=== PATIENT | female | born 1985 | race Caucasian/White ===

== ENCOUNTER 2023-04-26 14:20 | Emergency (ER) | payer OTHER, SELFPAY ==
[2023-04-26 14:21] VITALS: BP 98/60
--- NOTE | 2023-04-26 15:04 | ED.GENMED ---
History of Present Illness
General
Chief Complaint: Abdominal Pain
Source: patient, records and spouse
Exam Limitations: none
Time Seen by Provider: 04/26/23 14:37
Nursing documentation reviewed up to this point in time: agreed with
Travel History
Have you had any contact with someone who has COVID-19?: No
Do you have any symptoms of coronavirus? Fever > 100 degrees, chills, cough, shortness of breath, sore throat, loss of taste or smell, muscle aches, or headache?: No
History of Present Illness
History of Present Illness:
Patient is a 38-year-old female who presents to the emergency department complaining of nausea, vomiting and diarrhea since awaking this morning. Patient states she was having vomiting and diarrhea every 5 minutes for approximately 2 hours.
Patient is thirsty. Patient denies fever but admits to chills. Patient has diffuse abdominal pain and is getting her period also. Patient's worst pain is right upper quadrant. Patient had a cholecystectomy 2 years ago. Patient denies any
symptoms. Patient denies any upper respiratory type symptoms. Patient denies chest pain or shortness of breath. Patient denies any unusual foods. No one else is ill. There is no travel history. No recent antibiotics.
Past History
Past History
ED Past Medical History: Asthma and Other (Polycystic ovaries, heart murmur, migraines)
ED Past Surgical History: Gynecological and Tonsilectomy
Social History
Tobacco: Non-smoker
Alcohol: None
Drug: None
Living: with family
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
Review of Systems
Review of Systems
All Other Systems: ROS reviewed and negative except as documented in HPI and ROS
Constitutional: Reports fatigue and chills; Denies fever
EENT: Reports no symptoms
Respiratory: Reports no symptoms
Cardiac: Reports no symptoms
ABD/GI: Reports abdominal pain, nausea, vomiting, diarrhea and anorexia; Denies bloody stools or black stools
: Reports no symptoms
Musculoskeletal: Reports no symptoms
Skin: Reports no symptoms
Neurological: Reports no symptoms
Hematologic/Lymphatic: Reports no symptoms
Phy Exam
Physical Exam
Physical Exam:
Physical Exam
General: moderate distress, alert and appropriate, well nourished, dry mucous membranes
HENT: Normocephalic, supple with no lymphadenopathy, no thyromegaly
Eyes: Clear sclera, conjuctiva without injection
Heart: Regular rhythm and rate. No S3, S4. No murmur. No NVD
Lungs: No respiratory distress, no stridor, lung sounds clear and equal bilaterally
Abdomen: Soft, mild to moderate diffuse tenderness without guarding or rebound, no organomegaly, no CVA tenderness, BS good
Neuro: Alert and oriented x 3, CN II - XII intact, no motor focality, no cerebellar dysfunction
Skin: no rash
Psychiatric: well kept. interactive and cooperative
Extremities: No edema, cyanosis, tenderness, Good and equal peripheral pulses.
Course
Orders/Labs/Results
Orders:
Orders
04/26/23 14:43
0.9% Sodium Chloride 1000 ml [Nss] 1,000 ml IV BOLUS
HYDROmorphone [Dilaudid] 1 mg IV NOW STA
Ondansetron Injectable [Zofran] 4 mg IV NOW STA
04/26/23 14:44
Test Result ONCE
04/26/23 15:08
Complete Blood Count/With Diff Urgent
Comprehensive Metabolic Panel Urgent
HCG, Serum Qualitative Screen Urgent
Lipase Urgent
04/26/23 15:56
US Abdomen Complete/Upper Urgent
Comment:
Reason For Exam: tender ruq hx of cholecystectomy, elev LFT
Abnormal Lab Results
04/26/23
15:08
WBC 11.7 H 10^3/uL
(4.8-10.8)
MCH 32.5 H pg
(27.0-31.0)
Absolute Neuts (auto) 10.4 H 10^3/uL
(1.4-6.5)
Absolute Lymphs (auto) 0.4 L 10^3/uL
(1.2-3.4)
Neutrophils % 89.3 H %
(42.2-75.2)
Lymphocytes % 3.7 L %
(20.5-51.1)
Chloride 108 H mmol/L
(98-107)
Glucose 108 H mg/dl
(70-99)
AST 221 H U/L
(14-36)
ALT 108 H U/L
(0-35)
04/26/23 15:08
04/26/23 15:08
Vital Signs
Initial and Last Documented VS:
Initial Vital Signs
Pulse Resp BP Pulse Ox
89 18 98/60 99
04/26/23 14:21 04/26/23 14:21 04/26/23 14:21 04/26/23 14:21
Last Documented Vital Signs
Pulse Resp BP Pulse Ox
89 18 98/60 99
04/26/23 14:21 04/26/23 14:21 04/26/23 14:21 04/26/23 14:21
*Radiology
Radiology exam reviewed: radiology read reviewed (Nothing acute)
*Pulse Oximetry
Patient hypoxic: no
*EKG
Interpreted by ED Provider?: NA
*Smoking Pipes Cleaner Interpretation
Rate: Smoking Pipes Cleaner- N/A
*Critical Care Note
Total Time (30-74mins, 75-104mins- exclusive of procedures): Not Applicable
Update Note
Update Note:
Patient feeling better. Still mild abdominal pain. No diarrhea while here. Patient will be discharged with medications.
ED Attending Note
-
Portions of this chart may have been created with voice recognition software.� Occasional wrong word or��sound alike� substitutions may have occurred due to the inherent limitations of voice recognition software.
Discharge Plan
Departure
Patient Disposition: Home (Routine Discharge)
Date of Disposition: 04/26/23
Time of Disposition: 18:31
Patient with high blood pressure during this ER visit?: No
Condition: Fair
Covid-19: Not Applicable
Discharge Problem:
Acute gastroenteritis, Dehydration
Instructions: Dehydration, Adult (DC), [place] Diet, Viral Gastroenteritis, Adult (DC)
Prescriptions:
New
ondansetron 8 mg tablet,disintegrating
8 mg PO TID PRN (Reason: nausea and vomiting) Qty: 20 0RF
oxycodone 5 mg tablet
5 mg PO Q4H PRN (Reason: Pain) Qty: 14 0RF
No Action
cetirizine [Zyrtec] 10 MG tablet
10 mg PO QPM
escitalopram oxalate 10 MG tablet
10 mg PO QPM
cholecalciferol (vitamin D3) 2,000 UNIT tablet
2,000 unit PO QPM
ibuprofen 600 MG tablet
600 mg PO Q4HPRN PRN (Reason: cramps) 0RF
triamcinolone acetonide [Nasacort] 55 mcg Aerosol,[place]
1 spray INTRANASAL DAILY
Rx Instructions:
administer into each nostril
oxycodone 5 mg tablet
5 mg PO Q4HPRN PRN (Reason: breakthrough/severe pain) Qty: 10 0RF
Referrals:
Lakesha Zavala CRNP [Family Provider] - Follow up in 5-7 days
Interventions
Interventions:
*Risk Screen - Suicide Last Done: 04/26/23 14:21
*General Assessment Last Done: 04/26/23 14:21
*Neglect/Abuse Screening Last Done: 04/26/23 14:21
ED- Fall Risk Assessment Last Done: 04/26/23 15:15
*ED COVID-19 Vaccine History Last Done: 04/26/23 15:15
NN-[id number]-[id number] Assessment Last Done: 04/26/23 15:16
[2023-04-26] MEDS: NSS 1000 IV (15:07)
[2023-04-26] MEDS: ZOFRAN 4 MG IV (15:07)
[2023-04-26] MEDS: DILAUDID 1 MG IV (15:07)
[2023-04-26 15:15] VITALS: BMI 31.9
[2023-04-26 15:22] LABS: % Basophils 0.4 % (0-2); % Eosinophils 2.7 % (0-6); % Immature Granulocytes 0.3 % (0-0.5); % Lymphocytes 3.7 % (20.5-51.1); % Monocytes 3.6 % (1.7-9.3); % Neutrophils 89.3 % (42.2-75.2); Absolute Basophils 0.1 10^3/uL (0-0.2); Absolute Eosinophils 0.3 10^3/uL (0-0.7); Absolute Lymphocytes 0.4 10^3/uL (1.2-3.4); Absolute Monocytes 0.4 10^3/uL (0.1-0.6); Absolute Neutrophils 10.4 10^3/uL (1.4-6.5); Hematocrit 43.3 % (37.0-47.0); Hemoglobin 15.8 g/dL (12.0-16.0); Mean Corp Hgb Conc. 36.5 g/dL (33.0-37.0); Mean Corpuscular Hgb 32.5 pg (27.0-31.0); Mean Corpuscular Volume 89.1 fL (81.0-99.0); Mean Platelet Volume 8.4 fL (7.4-10.4); Nucleated Red Blood Cells % 0 %; Platelet Count 247 10^3/uL (130-400); Red Blood Cell Count 4.86 10^6/uL (4.20-5.40); White Blood Cell Count 11.7 10^3/uL (4.8-10.8)
[2023-04-26 15:36] LABS: HCG, Serum Qualitative Screen Negative
[2023-04-26 15:39] LABS: ALT (SGPT) 108 U/L (0-35); AST (SGOT) 221 U/L (14-36); Albumin 4.5 g/dl (3.5-5.0); Alkaline Phosphatase 77 U/L (38-126); Blood Urea Nitrogen 16 mg/dl (7-17); Calcium 8.8 mg/dl (8.4-10.2); Carbon Dioxide 23 mmol/L (22-30); Chloride 108 mmol/L (98-107); Estimated Creatinine Clearance > 125 ml/min; Glucose 108 mg/dl (70-99); Lipase 172 U/L (23-300); Potassium 3.9 mmol/L (3.5-5.1); Sodium 137 mmol/L (135-145); Total Protein 7.1 g/dl (6.3-8.2); eGFR > 60.00
[2023-04-26] MEDS: ZOFRAN ODT (ORALLY DISINTEGRATING) 4 MG PO (18:50)
[2023-04-26 18:53] LABS: Urine Albumin Negative (Neg - Trace); Urine Bilirubin Negative (Negative); Urine Character Clear (Clear); Urine Color Yellow; Urine Glucose Negative (Negative); Urine Ketone 2+ (Negative); Urine Leukocyte Negative (Negative); Urine Nitrite Negative (Negative); Urine Occult Blood 3+ (Negative); Urine Urobilinogen Negative (Neg - 1+)
[2023-04-26 19:14] LABS: Urine Squamous Cell 0-2 /LPF (Few)
[2023-04-26 19:15] LABS: Urine White Cell 0-2 /HPF (0-5)
== END 2023-04-26 18:52 | disposition home or self-care (01) ==
LOC: EMR 14:20
PROVIDERS: EMERGENCY PHYSICIAN Emergency Medicine; FAMILY PHYSICIAN Nurse Practitioner
DX: K52.9 Noninfective gastroenteritis and colitis, unspecified (principal); E86.0 Dehydration; J45.909 Unspecified asthma, uncomplicated; Z90.49 Acquired absence of other specified parts of digestive tract
CPT/HCPCS: 99284; 96374; 96375; 96361; 76700; 80053; 81003; 81015; 83690; 84703; 85025

== ENCOUNTER 2023-08-01 14:15 | Emergency (ER) | payer OTHER, SELFPAY ==
[2023-08-01 14:24] VITALS: BP 123/87
--- NOTE | 2023-08-01 17:55 | ED.GENMED ---
History of Present Illness
General
Chief Complaint: Skin Problem
Source: patient
Exam Limitations: none
Time Seen by Provider: 08/01/23 17:15
Nursing documentation reviewed up to this point in time: agreed with
Travel History
Have you had any contact with someone who has COVID-19?: No
Do you have any symptoms of coronavirus? Fever > 100 degrees, chills, cough, shortness of breath, sore throat, loss of taste or smell, muscle aches, or headache?: No
History of Present Illness
History of Present Illness:
38-year-old female presenting to the emergency department today with concerns of small lump to the back of her neck starting yesterday went to an urgent care sent to the ER denies additional symptoms otherwise.
Past History
Past History
ED Past Medical History: Asthma and Other (Polycystic ovaries, heart murmur, migraines)
ED Past Surgical History: Gynecological and Tonsilectomy
Social History
Tobacco: Non-smoker
Alcohol: None
Drug: None
Living: with family
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
Review of Systems
Review of Systems
Allergies reviewed?: Yes
All Other Systems: ROS reviewed and negative except as documented in HPI and ROS
Phy Exam
Physical Exam
Physical Exam:
GENERAL: Alert , in no apparent distress
EYE: pupils equal and reactive
NECK: Supple, no significant adenopathy.
ENT: Small minimally tender right-sided occipital lymph node roughly 1 cm size mobile o/p clr, mmm.
CARDIAC: Regular rate and rhythm .
LUNGS: Clear breath sounds bilaterally, no acute respiratory distress, no wheezes/rales/rhonchi
ABDOMEN: Soft, without focal tenderness, no r/g, no cvat
NEUROLOGICAL: Alert and oriented, no focal neuro deficits
SKIN: Warm and dry, skin intact.
MUSCULOSKELETAL: No edema, well perfused.
PSYCH: Normal and appropriate interaction.
Course
Orders/Labs/Results
Orders:
Orders
08/01/23 17:53
Cephalexin Monohydrate [Keflex] 500 mg PO NOW STA
Vital Signs
Initial and Last Documented VS:
Initial Vital Signs
Temp Pulse Resp BP Pulse Ox
98.4 F 72 18 123/87 98
08/01/23 14:24 08/01/23 14:24 08/01/23 14:24 08/01/23 14:24 08/01/23 14:24
Last Documented Vital Signs
Temp Pulse Resp BP Pulse Ox
98.4 F 72 18 123/87 98
08/01/23 14:24 08/01/23 14:24 08/01/23 14:24 08/01/23 14:24 08/01/23 14:24
MDM/Problems Addressed
MDM/Problems Addressed:
38-year-old female presenting to the emergency department today with concerns of a swollen occipital lymph node starting yesterday. No surrounding redness or warmth minimal tenderness to palpation no additional findings. No concerning features
otherwise. Was started on medication for potential lymphadenitis and was advised for close outpatient follow-up for monitoring of this. Return precautions given.
*Critical Care Note
Total Time (30-74mins, 75-104mins- exclusive of procedures): Not Applicable
ED Attending Note
-
Portions of this chart may have been created with voice recognition software.� Occasional wrong word or��sound alike� substitutions may have occurred due to the inherent limitations of voice recognition software.
Discharge Plan
Departure
Patient Disposition: Home (Routine Discharge)
Date of Disposition: 08/01/23
Time of Disposition: 17:56
Patient with high blood pressure during this ER visit?: No
Condition: Good
Covid-19: Not Applicable
Discharge Problem:
Lymphadenitis
Instructions: Lymphadenitis (DC)
Prescriptions:
New
cephalexin 500 mg capsule
500 mg PO QID 7 Days Qty: 28 0RF
No Action
cetirizine [Zyrtec] 10 MG tablet
10 mg PO QPM
escitalopram oxalate 10 MG tablet
10 mg PO QPM
cholecalciferol (vitamin D3) 2,000 UNIT tablet
2,000 unit PO QPM
ibuprofen 600 MG tablet
600 mg PO Q4HPRN PRN (Reason: cramps) 0RF
triamcinolone acetonide [Nasacort] 55 mcg Aerosol,[place]
1 spray INTRANASAL DAILY
Rx Instructions:
administer into each nostril
oxycodone 5 mg tablet
5 mg PO Q4HPRN PRN (Reason: breakthrough/severe pain) Qty: 10 0RF
ondansetron 8 mg tablet,disintegrating
8 mg PO TID PRN (Reason: nausea and vomiting) Qty: 20 0RF
oxycodone 5 mg tablet
5 mg PO Q4H PRN (Reason: Pain) Qty: 14 0RF
Referrals:
Lakesha Zavala CRNP [Family Provider] -
Activity Restrictions/Additional Instructions:
You went to the emergency department today with concerns of a lump to the back of your neck. You are found to have a swollen occipital lymph node. You were started on an antibiotic as this sometimes can be a bacterial infection. Please follow
closely with your primary care doctor for reassessment. Return to the emergency department any worsening, new or concerning symptoms.
Interventions
Interventions:
*Risk Screen - Suicide Last Done: 08/01/23 14:24
*General Assessment Last Done: 08/01/23 14:24
*Neglect/Abuse Screening Last Done: 08/01/23 14:24
*ED COVID-19 Vaccine History Last Done: 08/01/23 14:24
Discharge Date and Time
Print Language: GERMAN
[2023-08-01] MEDS: KEFLEX 500 MG PO (18:01)
== END 2023-08-01 18:06 | disposition home or self-care (01) ==
LOC: EMR 14:15
PROVIDERS: EMERGENCY PHYSICIAN Emergency Medicine; FAMILY PHYSICIAN Nurse Practitioner
DX: I88.9 Nonspecific lymphadenitis, unspecified (principal)
CPT/HCPCS: 99283

== ENCOUNTER → 2023-11-27 13:12 | Outpatient (REF) | payer OTHER, SELFPAY | LOC: HWRAD 13:12 | PROVIDERS: ATTENDING PHYSICIAN Obstetrics & Gynecology Gynecology; FAMILY PHYSICIAN Internal Medicine | DX: N93.9 Abnormal uterine and vaginal bleeding, unspecified (principal) | CPT/HCPCS: 76830; 76856 ==

== ENCOUNTER → 2025-02-04 10:44 | Outpatient (REF) | payer OTHER, SELFPAY | LOC: HWRAD 10:44 | PROVIDERS: ATTENDING PHYSICIAN Nurse Practitioner | DX: K21.9 Gastro-esophageal reflux disease without esophagitis (principal); K52.9 Noninfective gastroenteritis and colitis, unspecified | CPT/HCPCS: 76700 ==

== ENCOUNTER 2025-02-25 00:20 | Emergency (ER) | payer OTHER, SELFPAY ==
[2025-02-25 00:23] VITALS: BP 139/84
[2025-02-25 00:33] VITALS: BP 126/68
--- NOTE | 2025-02-25 00:51 | ED.GENMED ---
History of Present Illness
General
Chief Complaint: Abdominal Pain
Source: patient
Exam Limitations: none
Time Seen by Provider: 02/25/25 00:41
Nursing documentation reviewed up to this point in time: agreed with
History of Present Illness
History of Present Illness:
39-year-old female with history as noted presents for evaluation of abdominal pain. Patient reports onset of symptoms about an hour prior to arrival and they have been constant although intensity waxing and waning. She reports pain in the
epigastrium radiates towards the right upper quadrant. No clear triggering or relieving factors noted. Associated with nausea but no vomiting. No diarrhea or constipation. No fever today. Has not had any dysuria, hematuria, change in urinary
frequency. No vaginal bleeding or discharge. Last menstrual period was 1 week ago. She does have prior history of cholecystectomy and prior C-sections. Of note patient is on Ozempic.
Past History
Past History
ED Past Medical History: Asthma and Other (Polycystic ovaries, heart murmur, migraines)
ED Past Surgical History: Gynecological and Tonsilectomy
Social History
Tobacco: Non-smoker
Alcohol: None
Drug: None
Living: with family
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
Review of Systems
Review of Systems
All Other Systems: ROS reviewed and negative except as documented in HPI and ROS
Constitutional: Denies fever or chills
Respiratory: Denies trouble breathing
Cardiac: Denies chest pain
ABD/GI: Reports abdominal pain and nausea; Denies vomiting, diarrhea or constipated
: Denies dysuria, frequency, flank pain, bleeding or discharge
Musculoskeletal: Denies neck pain or back pain
Neurological: Denies dizzy or headache
Phy Exam
Physical Exam
Physical Exam:
General: Awake, alert, oriented x3 appears mildly uncomfortable
Head: Normocephalic, atraumatic
Eyes: Conjunctiva normal, sclera anicteric
Throat: Airway intact, handling secretions
Neck: Trachea midline, supple without meningismus
Lungs: Clear to auscultation bilaterally, no wheezing, rales, rhonchi
Heart: Regular rate and rhythm, no murmurs, gallops, or rubs
Abd: Soft, non distended, tender palpation epigastrium and right upper quadrant
Neuro: Grossly intact
Skin: no rash in area of concern
Extremities: No edema in extremities, warm and well-perfused
Scores
Heart Failure Risk
Heart Failure Risk Score: Not Applicable
Heart Score for Chest Pain Patients
STEMI patient?: Not applicable
Withdrawal Assessment of Alcohol
Withdrawal Assessment Completed?: Not applicable
Course
Orders/Labs/Results
Orders:
Orders
02/25/25 00:39
IV Insert/Care/Rem.- Treatment PRN
Test Result ONCE
02/25/25 00:42
CT Abd/pelvis W Iv Cont Urgent
Comment: prior cholecystectomy
Reason For Exam: upper abd pain, n/v, ttp upper abd
02/25/25 00:50
0.9% Sodium Chloride 1000 ml [Nss] 1,000 ml IV BOLUS
Morphine Sulfate 4 mg IV NOW STA
Ondansetron Injectable [Zofran] 4 mg IV NOW STA
02/25/25 00:58
Complete Blood Count/With Diff Urgent
Comprehensive Metabolic Panel Urgent
HCG, Serum Qualitative Screen Urgent
Comment: Notify provider if positive test present
Lipase Urgent
02/25/25 01:24
Ondansetron Injectable [Zofran] 4 mg .ROUTE .STK-MED ONE
Abnormal Lab Results
02/25/25
00:58
RBC 4.09 L 10^6/uL
(4.20-5.40)
Hct 35.1 L %
(37.0-47.0)
MCH 32.0 H pg
(27.0-31.0)
MCHC 37.3 H g/dL
(33.0-37.0)
Glucose 106 H mg/dl
(70-99)
AST 225 H U/L
(14-36)
ALT 104 H U/L
(0-35)
02/25/25 00:58
02/25/25 00:58
Vital Signs
Initial and Last Documented VS:
Initial Vital Signs
Temp Pulse Resp BP Pulse Ox
36.8 C 76 18 139/84 98
02/25/25 00:23 02/25/25 00:23 02/25/25 00:23 02/25/25 00:23 02/25/25 00:23
Last Documented Vital Signs
Temp Pulse Resp BP Pulse Ox
36.8 C 76 18 126/68 98
02/25/25 00:23 02/25/25 00:23 02/25/25 00:23 02/25/25 00:33 02/25/25 00:54
MDM/Problems Addressed
Differential Diagnosis Includes:
Gastritis, PUD, pancreatitis, bowel obstruction, nephrolithiasis
MDM/Problems Addressed:
39-year-old female presents for evaluation of abdominal pain in the epigastrium rating towards the right upper quadrant waxing and waning intensity for about an hour. Nausea but no vomiting. Vitals and exam as above. She is status post
cholecystectomy. Will plan to check labs including a CBC and a CMP, lipase. Check hCG, urinalysis. Check CT abdomen. Treat pain, nausea, provide some IV fluids. Reassess after the above.
Labs reviewed: CBC unremarkable, CMP shows marginal transaminitis stable from prior labs with normal T. bili. Lipase is normal. CT shows no acute abnormality to account for patient's symptoms. Clinical reassessment patient is stable, pain
controlled. Suspect this may be gastritis. In my judgment she is stable for discharge can trial PPI, Carafate. Refer to GI for follow-up of symptoms today as well as to follow-up on abnormal LFTs. Patient comfortable with this plan. All
questions answered.
*Radiology
Radiology exam reviewed: radiology read reviewed
*Pulse Oximetry
SaO2: 98
Oxygen Mode of Delivery: Room air
Patient hypoxic: no (98%)
*Critical Care Note
Total Time (30-74mins, 75-104mins- exclusive of procedures): Not Applicable
Data Reviewed
Source: patient and records
ED Attending Note
-
Portions of this chart may have been created with voice recognition software.� Occasional wrong word or��sound alike� substitutions may have occurred due to the inherent limitations of voice recognition software.
Discharge Plan
Departure
Patient Disposition: Home (Routine Discharge)
Date of Disposition: 02/25/25
Time of Disposition: 02:42
Patient with high blood pressure during this ER visit?: Yes
Discharge Problem:
Abdominal pain
Instructions: Abdominal Pain
Prescriptions:
New
pantoprazole 40 mg tablet,delayed release (DR/EC)
40 mg PO DAILY Qty: 30 0RF
sucralfate [Carafate] 1 gram tablet
1 g PO ACHS Qty: 30 0RF
No Action
cetirizine [Zyrtec] 10 MG tablet
10 mg PO QPM
escitalopram oxalate 10 MG tablet
10 mg PO QPM
cholecalciferol (vitamin D3) 2,000 UNIT tablet
2,000 unit PO QPM
ibuprofen 600 MG tablet
600 mg PO Q4HPRN PRN (Reason: cramps) 0RF
triamcinolone acetonide [Nasacort] 55 mcg Aerosol,[place]
1 spray INTRANASAL DAILY
Rx Instructions:
administer into each nostril
oxycodone 5 mg tablet
5 mg PO Q4HPRN PRN (Reason: breakthrough/severe pain) Qty: 10 0RF
ondansetron 8 mg tablet,disintegrating
8 mg PO TID PRN (Reason: nausea and vomiting) Qty: 20 0RF
oxycodone 5 mg tablet
5 mg PO Q4H PRN (Reason: Pain) Qty: 14 0RF
cephalexin 500 mg capsule
500 mg PO QID 7 Days Qty: 28 0RF
Referrals:
Rosio Hicks MD [Active, Gastroenterology] - Call in 1-3 days for appt
Lakesha Zavala CRNP [Family Provider, Internal Medicine]
Activity Restrictions/Additional Instructions:
Thank you for visiting the Emergency Department at [facility].
1. Please schedule a follow up appointment as directed. Call first thing tomorrow morning to make an appointment.
2. If indicated, please take your medications as instructed and indicated on discharge paperwork.
3. If any of your symptoms do not improve, or persist, or become more severe within 6-12 hours, please return to the emergency department for further care.
4. Please return to the emergency department if you develop a headache, neck pain/stiffness, fever greater than 100.4F, chest pain, shortness of breath, persistent nausea, vomiting, slurred speech, difficulty walking, numbness/tingling, weakness,
signs of infection or any other symptoms that are worrisome to you.
Please call [phone] if you have any questions.
Interventions
Interventions:
*Risk Screen - Suicide Last Done: 02/25/25 01:18
*General Assessment Last Done: 02/25/25 01:18
*Neglect/Abuse Screening Last Done: 02/25/25 01:18
*ED COVID-19 Vaccine History Last Done: 02/25/25 01:18
*ED Influenza Vaccine History Last Done: 02/25/25 01:18
[facility] Fall Risk Assessment Tool Last Done: 02/25/25 01:18
[id number] Assessment Last Done: 02/25/25 01:18
Discharge Date and Time
Print Language: [id number]
[2025-02-25] MEDS: MORPHINE SULFATE 4 MG IV (01:07)
[2025-02-25] MEDS: NSS 1000 IV (01:08)
[2025-02-25] MEDS: ZOFRAN 4 MG IV (01:10)
[2025-02-25 01:21] LABS: Hematocrit 35.1 % (37.0-47.0); Hemoglobin 13.1 g/dL (12.0-16.0); Mean Corp Hgb Conc. 37.3 g/dL (33.0-37.0); Mean Corpuscular Volume 85.8 fL (81.0-99.0); Nucleated Red Blood Cells % 0 %; Platelet Count 251 10^3/uL (130-400); Red Cell Dist. Width 12.1 % (11.5-14.5)
[2025-02-25 01:30] LABS: HCG, Serum Qualitative Screen Negative
[2025-02-25 01:35] LABS: ALT (SGPT) 104 U/L (0-35); AST (SGOT) 225 U/L (14-36); Albumin 4.4 g/dl (3.5-5.0); Alkaline Phosphatase 49 U/L (38-126); Blood Urea Nitrogen 12 mg/dl (7-17); Calcium 9.2 mg/dl (8.4-10.2); Carbon Dioxide 25 mmol/L (22-30); Chloride 106 mmol/L (98-107); Glucose 106 mg/dl (70-99); Lipase 139 U/L (23-300); Potassium 3.5 mmol/L (3.5-5.1); Sodium 136 mmol/L (135-145); Total Protein 6.7 g/dl (6.3-8.2); eGFR > 60.00
[2025-02-25] MEDS: PROTONIX IV 40 MG IV (02:52)
[2025-02-25 02:56] VITALS: BP 115/70
== END 2025-02-25 03:01 | disposition home or self-care (01) ==
LOC: EMR 00:20
PROVIDERS: Student in an Organized Health Care Education/Training Program; EMERGENCY PHYSICIAN Emergency Medicine; FAMILY PHYSICIAN Nurse Practitioner
DX: R10.13 Epigastric pain (principal); J45.909 Unspecified asthma, uncomplicated; E28.2 Polycystic ovarian syndrome; R01.1 Cardiac murmur, unspecified; Z90.49 Acquired absence of other specified parts of digestive tract; Z98.891 History of uterine scar from previous surgery
CPT/HCPCS: 99284; 96374; 96375; 96361; 74177; 80053; 83690; 84703; 85025; Q9967

== ENCOUNTER → 2025-03-12 08:52 | Outpatient (REF) | payer OTHER, SELFPAY | LOC: RAD 08:52 | PROVIDERS: ATTENDING PHYSICIAN Internal Medicine Gastroenterology; FAMILY PHYSICIAN Internal Medicine | DX: R19.4 Change in bowel habit (principal) | CPT/HCPCS: 74018 ==